=== PATIENT | male | born 1960 | race Caucasian/White ===

== ENCOUNTER 2020-07-24 13:46 | Emergency (ER) | payer SELFPAY ==
[2020-07-24 13:47] VITALS: BP 160/97; PULSE 91; RESP 16; TEMP 36.3; O2SAT 94; BMI 35.9
--- NOTE | 2020-07-24 14:14 | RAD_ITS ---
STUDY: X-RAY - LEFT KNEE REASON FOR EXAM: Left knee pain, left knee surgery in 2008. TECHNIQUE: 4 view(s) of the knee. COMPARISON: None. FINDINGS: Normal visualized distal femur. There is an intramedullary merritt in the tibia. There is chronic healed fracture deformity of the proximal fibula. Normal proximal tibiofibular articulation. There is a surface osteophyte of the medial femoral condyle without joint space narrowing of the medial femorotibial compartment. There are small marginal osteophytes without joint space narrowing of the lateral femorotibial compartment. There are marginal osteophytes with severe joint space narrowing of the lateral aspect of the patellofemoral articulation. There are intra-articular bodies. There are ossicles at the lateral aspect of the patella. RAD/Knee 4 or More Views IMPRESSION: Degenerative changes of the left knee, most advanced of the patellofemoral compartment. Intra-articular bodies. Chronic healed fracture deformity of the proximal fibula and intramedullary merritt in the tibia. Electronically Signed: Simone Crain MD at 15:25 EST Tel , Service support ,
--- NOTE | 2020-07-24 15:47 | ED.DEP ---
ED Disposition - Plan for ED Patient: Instructions: ED Knee Sprain Prescriptions: Hydrocodone Bitart/Apap 5-325 [[place] 5MG-325MG] 1 tab PO Q6H PRN PRN 3 Days #10 tab PRN Reason: Pain Prescription Printed Referrals: Chas Schaffer DO [STAFF PHYSICIAN] -
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
[2020-07-24 16:32] VITALS: RESP 14
== END 2020-07-24 16:35 | disposition home or self-care (01) ==
LOC: ED 15:39
PROVIDERS: Emergency Provider Emergency Medicine
DX: S80.02XA Contusion of left knee, initial encounter (principal); W19.XXXA Unspecified fall, initial encounter
CPT/HCPCS: 73564; 99283

== ENCOUNTER 2021-07-31 17:58 | Inpatient (IN) | payer MEDICARE, SELFPAY ==
[2021-07-31] VITALS (11 sets, daily range): BP systolic 92–124; BP diastolic 52–91; PULSE 91–120; RESP 18–28; TEMP 36.1–36.6; O2SAT 93–98; BMI 35.5; BMI 34.5
--- NOTE | 2021-07-31 18:29 | EKG12_ITS ---
Test Reason : FALL Blood Pressure : / mmHG Vent. Rate : 096 BPM Atrial Rate : 096 BPM P-R Int : 164 ms QRS Dur : 096 ms QT Int : 368 ms P-R-T Axes : 060 048 055 degrees QTc Int : 464 ms Normal sinus rhythm Normal ECG Confirmed by SHARI WALKER, ELIGIO ([id number]), medical editor CLAYTON BOWLING ([id number]) on 08/01/2021 11:10:25 AM Referred By: PL Confirmed By:KATELYNN MCCARTHY MD
--- NOTE | 2021-07-31 18:29 | RAD_ITS ---
STUDY: X-RAY - LEFT KNEE REASON FOR EXAM: Male, 60 years old. Fall TECHNIQUE: 3 view(s) of the knee. COMPARISON: 07/24/2020 FINDINGS: Normal visualized distal femur. Internal fixation hardware noted at the distal tibia. Intact distal fibula. There is moderate degenerative arthrosis of the medial femorotibial compartment with moderate joint space narrowing. There is moderate degenerative arthrosis of the lateral femorotibial compartment with moderate joint space narrowing. There is severe degenerative arthrosis of the patellofemoral articulation. The soft tissue structures are unremarkable. RAD/Knee 4 or More Views IMPRESSION: Evidence of prior ORIF distal tibia. Diffuse arthrosis. No acute fracture or dislocation. Electronically Signed: Leland Lyle MD at 19:38 EST ,
--- NOTE | 2021-07-31 18:29 | RAD_ITS ---
STUDY: X-RAY - RIGHT HAND REASON FOR EXAM: Male, 60 years old. Injury TECHNIQUE: 3 view(s) of the hand. COMPARISON: None. FINDINGS: No acute fracture, dislocation or osseous destruction. No significant joint space narrowing. No significant productive changes. No significant soft tissue swelling. IMPRESSION: Intact hand. Electronically Signed: Leland Lyle MD at 19:28 EST , RAD/Hand Min 3 Views
[2021-07-31 18:31] LABS: Bedside Glucose > 500 mg/dL (70-110)
--- NOTE | 2021-07-31 18:34 | EX.ED.DYSGE1 ---
HPI History of Present Illness Chief Complaint: Fall Detail of Chief Complaint: Falls and generalized weakness for the last several days Informant: patient Narrative Narrative: Patient presents to the emergency department via EMS after having a fall yesterday and another fall today where he could not get up. Patient lives with his girlfriend and they have been helping him get up when he has fallen in the past. Patient states that he hit his right hand on something yesterday and injured it as well as his left knee and right knee. Patient also checked his blood sugar and it was over 500. Patient states that has not been taking diabetic medicine for over 5 years as he is disabled. He denies chest pain or abdominal pain. He denies shortness of breath other than with some exertion. He denies any Covid exposures. Prior similar symptoms: No [facility] Medical History (Updated 07/31/21 @ 19:[address] Kell Blank, DO) Diabetes mellitus HTN (hypertension) Left leg injury Home Medications NK 07/31/21 [History Last Taken Unknown] Allergy/AdvReac Type Severity Reaction Status Date / Time No Known Allergies Allergy Verified 07/31/21 17:58 Surgical History no surgical history Social History Smoking Status: Former smoker ROS ROS ED ROS Narrative Hyperglycemia Constitutional Constitutional ED: Reports systems reviewed and no addt'l complaints, except as documented; Denies body ache(s), change in weight or chills Eyes Eyes: Denies acute decrease in peripheral vision, change in vision, double vision or loss of vision ENT ENT ED: Reports none; Denies ear pain, lip swelling, loss taste/smell, neck pain, otalgia or sore throat Cardiovascular Cardiovascular: Reports none; Denies abdominal pain, chest pain with activity, leg edema, lightheadedness, palpitations, rapid heart rate or syncope Respiratory/Chest Respiratory/Chest: Reports none, dyspnea and dyspnea on exertion; Denies change in mental status, dry cough, hemoptysis, shortness of breath at rest or shortness of breath with exertion Gastrointestinal Gastrointestinal: Reports none; Denies abdominal pain, change in stool character, diarrhea, hematemesis, hematochezia, melena, rectal bleeding or vomiting Genitourinary Genitourinary ED: Reports none; Denies abdominal discomfort, anuria, dysuria, genital pain or polyuria Musculoskeletal Musculoskeletal: Reports none and other Details: Bilateral knee pain and right hand pain ; Denies arthralgias, back pain, difficulty walking, extremity pain, muscle weakness or myalgias Integumentary Reports none; Denies abscess or rash Neurologic Neurologic: Reports none; Denies abnormal gait, confusion, focal weakness, frequent falls, headache(s), loss of vision, numbness, paresthesias, radicular pain, vertigo or weakness Psychiatric Psychiatric: Reports systems reviewed and no addt'l complaints, except as documented and none; Denies behavioral changes, confusion, difficulty concentrating, hallucinations, suicidal ideation, tactile hallucinations or visual hallucinations Endocrine Endocrinology: Reports other Details: Dark urine ; Denies none, cold intolerance, excessive sweating, fatigue or heat intolerance Hematologic/Lymphatic Hematologic/Lymphatic: Reports none; Denies anemia, easy bleeding or easy bruising Allergic/Immunologic Allergic/Immunologic ED: Denies as per HPI, none, lip swelling, mouth swelling, throat swelling, tongue swelling or hives EXAM Physical Exam Const Vital Signs: 07/31/21 17:59 07/31/21 18:06 07/31/21 18:41 Temperature 97.2 F L Temperature Source Oral Pulse Rate 101 H 99 94 Respiratory Rate 18 26 H 20 H Respiratory Effort Respiratory Depth Respiratory Pattern Blood Pressure 92/52 L 94/61 Blood Pressure Mean 65 72 Pulse Ox 95 94 94 Oxygen Delivery Method Room Air Room Air Room Air 07/31/21 18:43 07/31/21 19:34 Temperature Temperature Source Pulse Rate 91 Respiratory Rate 24 H Respiratory Effort Normal Respiratory Depth Normal Respiratory Pattern Normal Blood Pressure 97/60 Blood Pressure Mean 72 Pulse Ox 94 Oxygen Delivery Method Room Air Room Air Positive well nourished and well developed General Appearance ED: well developed and NAD HEENT Reports TM's clear and moist mucous membranes normocephalic and atraumatic; Negative for trauma or tenderness Tympanic Membrane ED: Yes TM's clear Eyes PERRL and EOMs intact bilaterally General Eye ED: Negative for pale conjunctiva or scleral icterus Neck no lymphadenopathy, supple and no JVD General: Negative for tenderness Chest Wall inspection of chest normal and palpation of chest normal Chest: Negative for tenderness Resp normal respiratory effort and clear to auscultation bilaterally Effort and Inspection: Negative for respiratory distress or pain with movement Auscultation: Negative for rhonchi, wheezes or diminished lung sounds Cardio regular rate, regular rhythm, S1 normal heart sound, S2 normal heart sound and no murmurs Peripheral Pulses: pulses 2+ throughout GI normal to inspection, nondistended, normoactive bowel sounds, soft to palpation, non-tender, non-distended and no masses Back/Spine no CVA tenderness and no thoracic nor lumbar tenderness Extremity normal to inspection Extremity Narrative: Patient has ecchymosis and bruising to the right posterior shoulder as well as to the right knee and left knee. There is deformity at the right knee which he states has been there for several months. General Extremety ED: Negative for edema General Extremity: Negative for edema Neuro oriented x3, CN's II-XII intact bilaterally, no sensory deficits noted and gait normal Sensorium / Orientation: awake, alert, oriented to person, oriented to place and oriented to time Motor Exam: strength 5/5 throughout and strength abnormal Psych mental status grossly normal Skin no rashes or lesions noted and no wounds MDM MDM MDM Narrative Medical decision making narrative: IV line established on arrival. Patient was written for a liter normal same fluid bolus. Patient was ordered an insulin drip. Patient noted to have acute kidney injury as well as DKA. Patient has elevated CPK I suspect likely related to his falls. Patient also has elevated troponin which I suspect is likely related to his acute kidney failure. Patient also with a lactic acidosis of 7.8. Case discussed with hospitalist will evaluate patient for admission Lab Data Attestation: I reviewed the patient's lab results. Labs: Laboratory Results - last 24 hr 07/31/21 07/31/21 07/31/21 18:05 18:05 18:05 WBC 11.7 H RBC 4.83 Hgb 14.9 Hct 42.1 MCV 87.2 MCH 30.8 MCHC 35.4 RDW Std Deviation 41.4 RDW Coeff of Cristiano 13.0 Plt Count 4 L* MPV TNP Immature Gran % (Auto) 1.100 H Neut % (Auto) 86.5 H Lymph % (Auto) 7.5 L Martin % (Auto) 4.5 Eos % (Auto) 0.1 Baso % (Auto) 0.3 Absolute Neuts (auto) 10.1 H Absolute Lymphs (auto) 0.87 Nucleated RBC % 0 Sodium 121 L Potassium 4.3 Chloride 87 L Carbon Dioxide 11.0 L Anion Gap 23 H BUN 39 H Creatinine 2.81 H Estim Creat Clear Calc 30.80 Est GFR (MDRD) Af Amer 30 L Est GFR (MDRD) Non-Af 24 L BUN/Creatinine Ratio 13.9 Glucose 584 H* Lactic Acid 7.8 H* Calcium 8.8 Total Bilirubin 1.50 H AST 158 H ALT 76 H Alkaline Phosphatase 112 Total Creatine Kinase 4950 H Troponin I High Sens 278 H* Total Protein 6.4 Albumin 2.5 L Globulin 3.9 Albumin/Globulin Ratio 0.6 L POC Glucose 07/31/21 18:10 WBC RBC Hgb Hct MCV MCH MCHC RDW Std Deviation RDW Coeff of Cristiano Plt Count MPV Immature Gran % (Auto) Neut % (Auto) Lymph % (Auto) Martin % (Auto) Eos % (Auto) Baso % (Auto) Absolute Neuts (auto) Absolute Lymphs (auto) Nucleated RBC % Sodium Potassium Chloride Carbon Dioxide Anion Gap BUN Creatinine Estim Creat Clear Calc Est GFR (MDRD) Af Amer Est GFR (MDRD) Non-Af BUN/Creatinine Ratio Glucose Lactic Acid Calcium Total Bilirubin AST ALT Alkaline Phosphatase Total Creatine Kinase Troponin I High Sens Total Protein Albumin Globulin Albumin/Globulin Ratio POC Glucose > 500 H* Radiography Chest X-Ray - ED: 1 View Diagnostic Testing: Clinical Impression(s) from Imaging Studies Hand X-Ray 07/31/21 18:29 Chest X-Ray 07/31/21 19:00 IMPRESSION: Normal x-ray examination of the chest. Electronically Signed: Leland Lyle MD at 19:30 EST Reading Location ID and State: [address] [place] [address] Tel , Service support , 1 view chest x-ray obtained interpreted by myself as no acute disease process. Radiology in agreement. Patient had x-rays of the right hand which were interpreted by myself as no acute fractures and radiology in agreement. Patient had 4 view x-rays of bilateral knees which interpreted by myself as no acute fractures. Patient had prior ORIF of the left tibia. Evaluation of the right knee showed chronic changes but no acute fractures. Radiology in agreement. EKG Initial EKG: Attestation: I personally reviewed and interpreted this EKG as follows: Comments: Sinus rhythm with a ventricular rate of 96 bpm with no acute ST segment changes Prior EKG tracings: not available for review Critical Care Time Critical care time (excluding procedures): Including time spent:, Discussing w/Patient &/or Family/Rat Farmer, Discussing w/Consultants, Arranging Admission or Transfer, Performing Direct Patient Care at Bedside and - (35 minutes) Discharge Plan Triage Chief Complaint: Fall ED Provider: Kell Blank Dx/Rx/DC Orders Clinical Impression: DKA (diabetic ketoacidosis), Thrombocytopenia, Acute kidney injury, Debility, Falls, Acute hyponatremia Prescriptions: No Action NK RF: 0 Primary Care Provider: Care Physician,No Primary Referrals: Care Physician,No Primary [Primary Care Provider] - Disposition Disposition: Acute Care Hospital [facility]
[2021-07-31] MEDS: 0.9% Normal Saline 1,000 ML 1000 ML IV (18:35)
--- NOTE | 2021-07-31 18:35 | RAD_ITS ---
STUDY: X-RAY - RIGHT KNEE REASON FOR EXAM: Male, 60 years old. PAIN TECHNIQUE: 3 view(s) of the knee. COMPARISON: None. FINDINGS: Severe arthrosis of the patellofemoral articulation with lateral displacement of the patella and extensive heterotopic bone formation. Moderate arthrosis of the femorotibial components. No acute displaced fracture is identified. The soft tissue structures are unremarkable. RAD/Knee 4 or More Views IMPRESSION: Severe arthrosis with subluxation of the patella. No acute fracture or dislocation identified. Electronically Signed: Leland Lyle MD at 19:42 EST ,
[2021-07-31 18:45] LABS: Absolute Lymphocyte Count 0.87 X10^3/uL (0.83-4.51); Absolute Neutrophil Count 10.1 X10^3/uL (2.0-7.7); Basophil# 0.04 X10^3/uL; Basophil% 0.3 % (0-1); Eosinophil# 0.01 X10^3/uL; Eosinophils% 0.1 % (0-5); Hematocrit 42.1 % (40-54); Hemoglobin 14.9 g/dL (13.0-16.5); Lymphocyte # 0.87 X10^3/ul (0.83-4.51); Lymphocyte % 7.5 % (19-41); Mean Corp Hgb Conc 35.4 g/dL (32-36); Mean Corpuscular Hgb 30.8 pg (27.0-32.0); Mean Corpuscular Volume 87.2 fL (80-94); Monocyte# 0.53 X10^3/uL; Monocyte% 4.5 % (0-10); NRBC Flagged by Analyzer 0 % (0-5); Neutrophil # 10.07 X10^3/uL (2.7-7.7); Neutrophil % 86.5 % (47-70); POSITIVE COUNT YES; POSITIVE MORPHOLOGY YES; RBC Distribution Width SD 41.4 fl (35.1-43.9); Red Blood Count 4.83 M/mm3 (4.6-6.2); White Blood Count 11.7 K/mm3 (4.4-11.0)
[2021-07-31] MEDS: 0.9% Normal Saline 1,000 ML 150 ML IV (18:45)
[2021-07-31 18:53] LABS: Differential Indicated SCAN CRITERIA MET; Platelet Count 4 K/mm3 (150-450)
--- NOTE | 2021-07-31 19:00 | RAD_ITS ---
STUDY: X-RAY CHEST REASON FOR EXAM: Male, 60 years old. Weakness TECHNIQUE: Single frontal view of the chest. COMPARISON: None. FINDINGS: The lungs are clear and expanded. There is no demonstrated pleural abnormality. Normal size heart. Normal mediastinum and tessie. Normal visualized pulmonary arteries. Normal visualized aortic arch and descending thoracic aorta. Normal visualized thoracic spine. Normal visualized ribs, clavicles, and shoulders. There is no demonstrated abnormality of the visualized soft tissue structures of the upper abdomen. RAD/Chest 1 View (Portable) IMPRESSION: Normal x-ray examination of the chest. Electronically Signed: Leland Lyle MD at 19:30 EST ,
[2021-07-31 19:07] LABS: Lactic Acid 7.8 mmol/L (0.4-1.9)
[2021-07-31 19:14] LABS: ALB/GLOB Ratio 0.6 RATIO (0.9-2.4); AST(SGOT) 158 U/L (15-37); Alanine Aminotransfer ALT/SGPT 76 U/L (16-61); Albumin, Serum 2.5 g/dL (3.2-5.0); Alkaline Phosphatase 112 U/L (45-117); Anion Gap 23 (5-15); BUN 39 mg/dL (7-18); BUN/Creat Ratio 13.9 RATIO (10-20); CPK Total, Creatine Kinase 4950 U/L (39-308); Calcium,Total 8.8 mg/dL (8.5-10.1); Chloride 87 mmol/L (98-107); Creatinine, Serum 2.81 mg/dL (0.70-1.30); EST Glomerular Filtration Rate 24 mL/min (>60); Est Glom Filt Rate - Afr Amer 30 mL/min (>60); Globulin 3.9 g/dL (2.2-4.2); Glucose 584 mg/dL (74-106); Potassium 4.3 mmol/L (3.5-5.1); Protein, Total 6.4 g/dL (6.4-8.2); Sodium Level 121 mmol/L (136-145); Troponin-I HS 278 pg/mL (3.0-78.0)
[2021-07-31 19:46] LABS: Differential Comment SCANNED
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
--- NOTE | 2021-07-31 19:50 | ED.RN ---
Report called to Nevin in ICU at 1950
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
--- NOTE | 2021-07-31 20:30 | RAD_ITS ---
EXAM: XR LEFT ELBOW COMPLETE, 3 OR MORE VIEWS CLINICAL INDICATION: pain, swelling TECHNIQUE: Frontal, lateral and oblique views of the left elbow. This report was created using [email or web address] report generation technology. COMPARISON: None. FINDINGS: BONES/JOINTS: Radial head prosthesis visualized. There is lucency surrounding the prosthesis which can suggest loosening. Small fracture fragment noted on the lateral view. The donor site is likely the radius. There is overlying soft tissue swelling of the arm. 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 There is no displacement of the anterior or posterior fat pads. SOFT TISSUES: See above. RAD/Elbow min 3 Views IMPRESSION: 1. Radial head prosthesis visualized. There is lucency surrounding the prosthesis which can suggest loosening. Small fracture fragment noted on the lateral view. The donor site is likely the radius. There is overlying soft tissue swelling of the arm. 2. 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 Electronically Signed: Chalo Pablo MD at 21:07 EST ,
[2021-07-31 20:36] LABS: Bedside Glucose 409 mg/dL (70-110)
[2021-07-31 21:10] LABS: Bedside Glucose 330 mg/dL (70-110)
[2021-07-31] MEDS: KCL 40mEq in 0.9% NS 40 MEQ/1,000 ML IV.SOLN 250 MEQ IV (21:29)
[2021-07-31 21:42] LABS: Anion Gap 20 (5-15); BUN 41 mg/dL (7-18); BUN/Creat Ratio 14.5 RATIO (10-20); Calcium,Total 8.4 mg/dL (8.5-10.1); Chloride 93 mmol/L (98-107); Creatinine, Serum 2.83 mg/dL (0.70-1.30); EST Glomerular Filtration Rate 24 mL/min (>60); Est Glom Filt Rate - Afr Amer 29 mL/min (>60); Estimated Creatinine Clearance 30.59 ml/min; Glucose 328 mg/dL (74-106); Sodium Level 127 mmol/L (136-145)
[2021-07-31 21:49] LABS: Hemoglobin A1c 12.5 % (3.8-5.6)
[2021-07-31 22:06] LABS: Troponin-I HS 301 pg/mL (3.0-78.0)
[2021-07-31 22:11] LABS: Bedside Glucose 277 mg/dL (70-110)
[2021-07-31 22:39] LABS: Reflex Lactate? Y
[2021-07-31] MEDS: Potassium Chloride 40 MEQ in Dext 5%-0.45% NS 1,000 ML 150 MEQ IV (23:39)
[2021-08-01] VITALS (45 sets, daily range): BP systolic 72–149; BP diastolic 33–105; PULSE 0–163; RESP 12–119; TEMP 36.1–37.1; O2SAT 28–100
[2021-08-01 00:36] LABS: Bedside Glucose 261 mg/dL (70-110)
[2021-08-01 00:36] LABS: Bedside Glucose 191 mg/dL (70-110)
[2021-08-01 01:14] LABS: Anion Gap 19 (5-15); BUN 45 mg/dL (7-18); BUN/Creat Ratio 15.7 RATIO (10-20); Calcium,Total 8.6 mg/dL (8.5-10.1); Chloride 97 mmol/L (98-107); Creatinine, Serum 2.86 mg/dL (0.70-1.30); EST Glomerular Filtration Rate 24 mL/min (>60); Est Glom Filt Rate - Afr Amer 29 mL/min (>60); Estimated Creatinine Clearance 30.27 ml/min; Glucose 247 mg/dL (74-106); Sodium Level 128 mmol/L (136-145)
[2021-08-01 01:26] LABS: Bedside Glucose 247 mg/dL (70-110)
[2021-08-01 01:32] LABS: Lactic Acid 4.2 mmol/L (0.4-1.9); Troponin-I HS 381 pg/mL (3.0-78.0)
[2021-08-01 02:31] LABS: Bedside Glucose 241 mg/dL (70-110)
[2021-08-01 03:22] LABS: Absolute Lymphocyte Count 0.63 X10^3/uL (0.83-4.51); Absolute Neutrophil Count 7.7 X10^3/uL (2.0-7.7); Basophil# 0.02 X10^3/uL; Basophil% 0.2 % (0-1); Eosinophil# 0.01 X10^3/uL; Eosinophils% 0.1 % (0-5); Hematocrit 38.5 % (40-54); Hemoglobin 14.5 g/dL (13.0-16.5); Lymphocyte # 0.63 X10^3/ul (0.83-4.51); Mean Corpuscular Hgb 31.3 pg (27.0-32.0); Monocyte# 0.58 X10^3/uL; Monocyte% 6.4 % (0-10); NRBC Flagged by Analyzer 0 % (0-5); Neutrophil # 7.73 X10^3/uL (2.7-7.7); Neutrophil % 85.6 % (47-70); POSITIVE COUNT YES; POSITIVE MORPHOLOGY YES; RBC Distribution Width SD 39.8 fl (35.1-43.9); Red Blood Count 4.64 M/mm3 (4.6-6.2)
[2021-08-01 03:24] LABS: Differential Indicated SCAN CRITERIA MET; Platelet Count 3 K/mm3 (150-450)
[2021-08-01 03:55] LABS: Bedside Glucose 262 mg/dL (70-110)
--- NOTE | 2021-08-01 04:31 | NURSING ---
0430: first pack platelets up after manual verification d/t non-scanning unit number on product; conferred w/laborer laboratory Myles prior to manual verification and administration outside of [facility]. VS: 98f, 115, 26, 97%, 112/49 transfusion started at 120ml/hr per policy thru [facility] 20g.
--- NOTE | 2021-08-01 04:47 | NURSING ---
0445: Platelet transfusion rate increased to 150ml/hr, pt denies any complaints. Vitals: 98f,116,21,97%,93/77
[2021-08-01 05:05] LABS: AST(SGOT) 197 U/L (15-37); Alanine Aminotransfer ALT/SGPT 79 U/L (16-61); Albumin, Serum 2.3 g/dL (3.2-5.0); Alkaline Phosphatase 125 U/L (45-117); Anion Gap 16 (5-15); BUN 50 mg/dL (7-18); BUN/Creat Ratio 16.2 RATIO (10-20); Bilirubin, Direct 0.45 mg/dL (0.00-0.30); Calcium,Total 8.6 mg/dL (8.5-10.1); Chloride 95 mmol/L (98-107); Creatinine, Serum 3.08 mg/dL (0.70-1.30); EST Glomerular Filtration Rate 22 mL/min (>60); Est Glom Filt Rate - Afr Amer 27 mL/min (>60); Globulin 3.9 g/dL (2.2-4.2); Glucose 205 mg/dL (74-106); Potassium 3.9 mmol/L (3.5-5.1); Protein, Total 6.2 g/dL (6.4-8.2); Sodium Level 128 mmol/L (136-145)
[2021-08-01 05:33] LABS: CPK Total, Creatine Kinase 5101 U/L (39-308)
[2021-08-01 05:58] LABS: Mean Corp Hgb Conc 37.2 g/dL (32-36)
[2021-08-01 06:01] LABS: Differential Comment SCANNED; Platelet Estimate MKD DEC (ADEQ)
[2021-08-01 06:20] LABS: Bedside Glucose 212 mg/dL (70-110)
[2021-08-01 06:20] LABS: Bedside Glucose 251 mg/dL (70-110)
[2021-08-01] MEDS: Potassium Chloride 40 MEQ in Dext 5%-0.45% NS 1,000 ML 150 MEQ IV ×2 (06:27→20:09)
[2021-08-01 07:00] LABS: Bedside Glucose 250 mg/dL (70-110)
[2021-08-01 07:17] LABS: Hemoglobin A1c 12.5 % (3.8-5.6)
[2021-08-01 08:26] LABS: Bedside Glucose 254 mg/dL (70-110)
[2021-08-01 09:24] LABS: Anion Gap 15 (5-15); BUN 53 mg/dL (7-18); BUN/Creat Ratio 16.6 RATIO (10-20); Calcium,Total 8.4 mg/dL (8.5-10.1); Chloride 98 mmol/L (98-107); Creatinine, Serum 3.19 mg/dL (0.70-1.30); EST Glomerular Filtration Rate 21 mL/min (>60); Est Glom Filt Rate - Afr Amer 26 mL/min (>60); Estimated Creatinine Clearance 27.13 ml/min; Glucose 217 mg/dL (74-106); Potassium 3.8 mmol/L (3.5-5.1); Sodium Level 129 mmol/L (136-145)
[2021-08-01 11:40] LABS: Bedside Glucose 211 mg/dL (70-110)
[2021-08-01 11:49] LABS: Absolute Lymphocyte Count 0.41 X10^3/uL (0.83-4.51); Absolute Neutrophil Count 5.4 X10^3/uL (2.0-7.7); Basophil# 0.02 X10^3/uL; Basophil% 0.3 % (0-1); Eosinophil# 0.01 X10^3/uL; Eosinophils% 0.2 % (0-5); Hematocrit 37.4 % (40-54); Hemoglobin 13.7 g/dL (13.0-16.5); Lymphocyte # 0.41 X10^3/ul (0.83-4.51); Lymphocyte % 6.4 % (19-41); Mean Corp Hgb Conc 36.6 g/dL (32-36); Mean Corpuscular Hgb 30.9 pg (27.0-32.0); Mean Corpuscular Volume 84.2 fL (80-94); Monocyte# 0.52 X10^3/uL; Monocyte% 8.1 % (0-10); NRBC Flagged by Analyzer 0 % (0-5); Neutrophil # 5.35 X10^3/uL (2.7-7.7); Neutrophil % 83.1 % (47-70); POSITIVE COUNT YES; POSITIVE DIFFERENTIAL YES; POSITIVE MORPHOLOGY YES; RBC Distribution Width SD 40.6 fl (35.1-43.9); Red Blood Count 4.44 M/mm3 (4.6-6.2); White Blood Count 6.4 K/mm3 (4.4-11.0)
[2021-08-01 11:51] LABS: Differential Indicated SCAN CRITERIA MET; Platelet Count 4 K/mm3 (150-450)
[2021-08-01 11:58] LABS: Anion Gap 17 (5-15); BUN 55 mg/dL (7-18); BUN/Creat Ratio 16.1 RATIO (10-20); Calcium,Total 8.3 mg/dL (8.5-10.1); Chloride 98 mmol/L (98-107); Creatinine, Serum 3.42 mg/dL (0.70-1.30); EST Glomerular Filtration Rate 19 mL/min (>60); Est Glom Filt Rate - Afr Amer 24 mL/min (>60); Estimated Creatinine Clearance 25.31 ml/min; Glucose 239 mg/dL (74-106); Potassium 3.8 mmol/L (3.5-5.1); Sodium Level 130 mmol/L (136-145)
[2021-08-01 12:24] LABS: Platelet Estimate MKD DEC (ADEQ)
[2021-08-01] MEDS: 0.9% Normal Saline 1,000 ML 500 ML IV (12:25)
[2021-08-01 12:36] LABS: Bedside Glucose 219 mg/dL (70-110)
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
[2021-08-01 14:01] LABS: Pathologist Review Reviewed
[2021-08-01 14:03] LABS: Pathologist Review Reviewed
[2021-08-01 14:11] LABS: Bedside Glucose 209 mg/dL (70-110)
[2021-08-01] MEDS: Lidocaine Jelly 2% 20 ML Syringe (URO-JET) 1 APPLIC TOPICAL (14:30)
[2021-08-01 14:57] LABS: Mucous, Urine 0 SEEN /hpf (<or=2+); Squamous Epithelial Cells - UA 0 SEEN /hpf (0-5)
[2021-08-01 15:03] LABS: Color, Urine Amber (Yellow); Glucose, Dipstick 1000 mg/dl (Normal); Ketone-Dipstick 15 mg/dl (Negative); Leukocyte Esterase-Dipstick 25 /ul (Negative); Nitrite-Dipstick Negative (Negative); Occult Blood-Urine 250 /ul (Negative); Protein-Dipstick 100 mg/dl (Negative); Urine Clarity Sl. Cloudy (Clear); Urine Urobilinogen 1 mg/dl (Normal)
[2021-08-01 15:26] LABS: Urine Bilirubin Dipstick 1 mg/dL (Negative)
[2021-08-01 15:27] LABS: Bacteria RARE /hpf (None Seen); Red Blood Cells-Urine 25-50 SEEN /hpf (0-5)
[2021-08-01 15:28] LABS: White Blood Cells 0-5 SEEN /hpf (0-5)
--- NOTE | 2021-08-01 15:32 | EKG12_ITS ---
Test Reason : Blood Pressure : / mmHG Vent. Rate : 118 BPM Atrial Rate : 118 BPM P-R Int : 142 ms QRS Dur : 102 ms QT Int : 336 ms P-R-T Axes : 047 033 027 degrees QTc Int : 470 ms Sinus tachycardia Otherwise normal ECG When compared with ECG of 31-JUL-2021 18:07, No significant change was found Confirmed by HENRY WALKER, KATE ([id number]), fan mail editor CLAYTON BOWLING ([id number]) on 08/06/2021 11:21:07 AM Referred By: Confirmed By:KATE FIGUEROA MD
[2021-08-01 15:56] LABS: Allen Test Positive; Base Excess -15 mmol/L (-2 to +2); Bicarbonate 10.4 mmol/L (22-26); Blood Gas Specimen Type ART; O2 Delivery Device Cannula; PO2 68 mmHG (75-100); SITE R Radial; SO2 93 % (95-99); Total Carbon Dioxide 11 mmol/L; pCO2 18.9 mmHg (35-45); pH 7.35 (7.35-7.45)
--- NOTE | 2021-08-01 16:15 | NURSING ---
1530 pt w/increase respers, diaphoretic, polanco, 12 lead ekg completed. STATIONARY STEAM ENGINEER called
--- NOTE | 2021-08-01 16:29 | EX.PCM.CONCC ---
Assessment & Plan Assessment/Plan (1) Chronic ITP (idiopathic thrombocytopenic purpura): (2) DKA (diabetic ketoacidosis): QUALIFIERS: Diabetes mellitus complication detail: without coma Diabetes mellitus type: other specified (including KELLY) Qualified Code(s): E13.10 - Other specified diabetes mellitus with ketoacidosis without coma (3) Acute kidney injury: (4) Debility: PLAN: RECOMMENDATIONS: 1. IVIG and steroids per hematology 2. Continue to monitor DKA per protocol 3. Monitor peripheral pulses or compartment syndrome 4. Obtain coagulation studies 5. Potential Ortho consult for evaluation of left great toe cellulitis and right knee hemarthrosis 6. Monitor for respiratory muscle fatigue. BiPAP if indicated 7. Cycle troponins IMPRESSIONS: 1. Acute DKA with uncontrolled diabetes mellitus Patient is currently on the protocol. Patient has not received significant volume resuscitation at this time, but does appear to be improving. Continue with insulin until gap is closed. Patient does have significant respiratory compensation for metabolic acidosis. We will need to watch closely for respiratory muscle fatigue. BiPAP can be added if necessary. 2. Thrombocytopenia Unclear etiology. ITP versus TTP. Patient does have renal dysfunction, encephalopathy, elevated troponin and oliguria. Recommend obtaining coagulation studies, fibrinogen and other work-up per hematology. Unclear if additional platelet transfusions will be helpful. Patient does have hypocalcemia also. Patient appears to have possible bleeding complications such as hemarthrosis of the right knee. X-rays were unremarkable. May need a tap. Could consider orthopedic evaluation. 3. Severe sepsis secondary to group B strep with potential subacute endocarditis Patient may have an element of osteomyelitis of the left great toe. Patient has all blood cultures positive for group B strep. Given patient's poor care of himself, cannot exclude a subacute endocarditis. Would recommend an echocardiogram if not completed previously. Patient is on appropriate antibiotics at this time. Patient does have elevated CPK, creatinine and encephalopathy indicating endorgan damage. 4. Rhabdomyolysis/elevated troponin/acute kidney injury CPK is slightly elevated. Patient does have an element of acute kidney injury with a high of 3.4. Patient appears to be responding to fluid resuscitation. Urine output is marginal at this time. CPK is relatively unchanged. No indication for renal replacement therapy at this time. We will supplement potassium. Patient did have pseudohyponatremia on presentation. 5. Lack of primary care/multiple falls/pseudohyponatremia Complicates care, management, recovery and prognosis. Patient will need to work with PT/OT. Anticipate case management evaluating for placement on discharge. Poor long-term prognosis. We will need to address CODE STATUS once underlying etiologies are elucidated. Addendum 5:25 PM: Called emergently to the patient's room at approximately 5 PM secondary to acute onset of SVT. Patient was noted to be tachypneic and diaphoretic as he has been since I originally saw him. Patient was given 6 mg and then 12 mg of adenosine with EKGs. Telemetry appears to be A. fib with an irregular rhythm, but EKG is showing sinus tach. Patient will be monitored clinically for 10 minutes to see if it will resolve spontaneously. If this is unsuccessful, will attempt trial with beta-naren. TIME: 60 minutes critical care time spent addressing patient's acute DKA, thrombocytopenia, severe sepsis, rhabdomyolysis, review of all data and collaboration with care team. HPI Consult Data Date of Consult: 08/01/21 HPI Narrative HPI Narrative: LIANNA MARTINEZ is a 60 M, with past medical history listed below, who presents to [facility] on 07/31/2021 following a fall and inability to get up. Patient reportedly lives with his girlfriend and has been falling multiple times over the last 2 to 3 weeks. She had checked his blood sugar and it was over 500. Patient is a known diabetic, but has not been taking his medications for over 5 years. Patient is currently not interactive, so that history is per the medical record. Patient reportedly had denied any shortness of breath, fever, chills or chest pain. In the ER, patient was afebrile, but hypotensive at 92/52. Patient saturating well on room air, but was tachypneic at 26 breaths/min. Laboratory work-up showed a white blood cell count of 11.7, hemoglobin of 14.9 and a platelet count of 4. Creatinine was elevated at 2.81, glucose 584 with an anion gap of 23. Total CK was elevated at almost 5000 and troponin was 278. Total bilirubin was up at 1.5. Chest x-ray was unremarkable. The patient was admitted to the floor with a diagnosis of DKA on an insulin drip. Patient was noted to have a lactic acidosis of 7.8. Intensive care was not initially consulted. Patient reportedly has received multiple transfusions of platelets At 3:30 PM, rapid response was called to patient's room. Patient was noted to be hypotensive, ashen and significant respiratory distress. Patient reportedly has been confused throughout the day. Patient's blood sugars were recently checked and within normal limits. Patient reportedly her been seen by oncology and given a diagnosis of ITP. Patient was given IVIG and a fluid bolus. An ABG was obtained showing compensated metabolic acidosis. Patient's eyes are open, but he is not interactive at this time. Patient does appropriately track. No seizure activity has been reported by nursing, but they have felt that he is gone downhill through the day. [facility] Medical History Diabetes mellitus HTN (hypertension) Left leg injury Home Medications NK 07/31/21 [History Last Taken Unknown] Allergy/AdvReac Type Severity Reaction Status Date / Time No Known Allergies Allergy Verified 07/31/21 17:58 Family History Other Diabetes Hypertension Surgical History H/O knee surgery Surgical History no surgical history Social History Smoking Status: Former smoker ROS Review of Systems ROS Unobtainable: due to encephalopathy Physical Exam Const alert; Negative for oriented x3 Constitutional Narrative: lying in bed General Appearance: disheveled and appears older than stated age Nutritional Appearance: obese HEENT normocephalic Head and Scalp: atraumatic Eyes PERRL, EOMs intact bilaterally and conjunctivae normal; Negative for no scleral icterus Eyes Narrative: Glasses in place Neck supple Lymph Lymphatic: no lymphadenopathy noted Chest inspection of chest normal Chest: symmetrical chest wall rise; Negative for crepitus Resp Resp Narrative: No paradoxical respiratory movements noted Effort and Inspection: tachypneic Auscultation: clear to auscultation bilaterally; Negative for rales, rhonchi or wheezes Percussion: percussion normal Cardio regular rhythm, S1 normal heart sound, S2 normal heart sound, no murmurs, no rub and no gallops Rate: tachycardic GI normal to inspection, nondistended, normoactive bowel sounds Extremity Right Lower Extremity: knee joint inspection (Significant swelling with ecchymosis) Left Lower Extremity: foot and digits Positive for inspection (Cooler to the touch. Chronically draining wounds dorsal aspect of the large toe) Skin Skin Narrative: Multiple areas of bruising in various stages of healing. Some abrasions noted on the chest and left shoulder. Neuro CN's II-XII intact bilaterally and moves all extremities Psych Appearance: unkempt Attitude: uncooperative Mood & Affect: blunted affect Lab / Micro Data Result Diagrams: 08/01/21 11:35 08/01/21 16:00 Labs: Laboratory Results - last 24 hr 07/31/21 18:05: WBC 11.7 H, RBC 4.83, Hgb 14.9, Hct 42.1, MCV 87.2, MCH 30.8, MCHC 35.4, RDW Std Deviation 41.4, RDW Coeff of Cristiano 13.0, Plt Count 4 L*, MPV TNP, Immature Gran % (Auto) 1.100 H, Neut % (Auto) 86.5 H, Lymph % (Auto) 7.5 L, [place] % (Auto) 4.5, Eos % (Auto) 0.1, Baso % (Auto) 0.3, Absolute Neuts (auto) 10.1 H, Absolute Lymphs (auto) 0.87, Nucleated RBC % 0, Differential Comment SCANNED, Diff Path Review Reviewed 07/31/21 18:05: Sodium 121 L, Potassium 4.3, Chloride 87 L, Carbon Dioxide 11.0 L, Anion Gap 23 H, BUN 39 H, Creatinine 2.81 H, Estim Creat Clear Calc 30.80, Est GFR (MDRD) Af Amer 30 L, Est GFR (MDRD) Non-Af 24 L, BUN/Creatinine Ratio 13.9, Glucose 584 H*, Calcium 8.8, Total Bilirubin 1.50 H, AST 158 H, ALT 76 H, Alkaline Phosphatase 112, Total Creatine Kinase 4950 H, Troponin I High Sens 278 H*, Total Protein 6.4, Albumin 2.5 L, Globulin 3.9, Albumin/Globulin Ratio 0.6 L 07/31/21 18:05: Lactic Acid 7.8 H* 07/31/21 18:10: POC Glucose > 500 H* 07/31/21 20:30: POC Glucose 409 H 07/31/21 20:36: Blood Type O POSITIVE 07/31/21 21:06: POC Glucose 330 H 07/31/21 21:10: Hemoglobin A1c 12.5 H 07/31/21 21:10: Sodium 127 L, Potassium 4.0, Chloride 93 L, Carbon Dioxide 14.0 L, Anion Gap 20 H, BUN 41 H, Creatinine 2.83 H, Estim Creat Clear Calc 30.59, Est GFR (MDRD) Af Amer 29 L, Est GFR (MDRD) Non-Af 24 L, BUN/Creatinine Ratio 14.5, Glucose 328 H, Calcium 8.4 L 07/31/21 21:10: Troponin I High Sens 301 H* 07/31/21 22:04: POC Glucose 277 H 07/31/21 23:09: POC Glucose 191 H 08/01/21 00:20: Sodium 128 L, Potassium 4.0, Chloride 97 L, Carbon Dioxide 12.0 L, Anion Gap 19 H, BUN 45 H, Creatinine 2.86 H, Estim Creat Clear Calc 30.27, Est GFR (MDRD) Af Amer 29 L, Est GFR (MDRD) Non-Af 24 L, BUN/Creatinine Ratio 15.7, Glucose 247 H, Calcium 8.6 08/01/21 00:20: Troponin I High Sens 381 H* 08/01/21 00:20: Lactic Acid 4.2 H* 08/01/21 00:23: POC Glucose 261 H 08/01/21 01:19: POC Glucose 247 H 08/01/21 02:24: POC Glucose 241 H 08/01/21 03:05: POC Glucose 262 H 08/01/21 03:12: WBC 9.0, RBC 4.64, Hgb 14.5, Hct 38.5 L, MCV 83.0, MCH 31.3, MCHC 37.2 H D, RDW Std Deviation 39.8, RDW Coeff of Cristiano 13.0, Plt Count 3 L*, MPV TNP, Immature Gran % (Auto) 0.700, Neut % (Auto) 85.6 H, Lymph % (Auto) 7.0 L, [place]oup % (Auto) 6.4, Eos % (Auto) 0.1, Baso % (Auto) 0.2, Absolute Neuts (auto) 7.7, Absolute Lymphs (auto) 0.63 L, Nucleated RBC % 0, Differential Comment SCANNED, Diff Path Review Reviewed, Platelet Estimate MKD 08/01/21 03:12: Hemoglobin A1c 12.5 H 08/01/21 04:08: Sodium 128 L, Potassium 3.9, Chloride 95 L, Carbon Dioxide 17.0 L, Anion Gap 16 H, BUN 50 H, Creatinine 3.08 H, Estim Creat Clear Calc 28.10, Est GFR (MDRD) Af Amer 27 L, Est GFR (MDRD) Non-Af 22 L, BUN/Creatinine Ratio 16.2, Glucose 205 H, Calcium 8.6, Total Bilirubin 1.40 H, Direct Bilirubin 0.45 H, AST 197 H, ALT 79 H, Alkaline Phosphatase 125 H, Total Protein 6.2 L, Albumin 2.3 L, Globulin 3.9 08/01/21 04:08: Total Creatine Kinase 5101 H 08/01/21 05:02: POC Glucose 212 H 08/01/21 06:15: POC Glucose 251 H 08/01/21 06:57: POC Glucose 250 H 08/01/21 08:19: POC Glucose 254 H 08/01/21 09:00: Sodium 129 L, Potassium 3.8, Chloride 98, Carbon Dioxide 16.0 L, Anion Gap 15, BUN 53 H, Creatinine 3.19 H, Estim Creat Clear Calc 27.13, Est GFR (MDRD) Af Amer 26 L, Est GFR (MDRD) Non-Af 21 L, BUN/Creatinine Ratio 16.6, Glucose 217 H, Calcium 8.4 L 08/01/21 10:07: POC Glucose 211 H 08/01/21 11:35: Sodium 130 L, Potassium 3.8, Chloride 98, Carbon Dioxide 15.0 L, Anion Gap 17 H, BUN 55 H, Creatinine 3.42 H, Estim Creat Clear Calc 25.31, Est GFR (MDRD) Af Amer 24 L, Est GFR (MDRD) Non-Af 19 L, BUN/Creatinine Ratio 16.1, Glucose 239 H, Calcium 8.3 L 08/01/21 11:35: WBC 6.4, RBC 4.44 L, Hgb 13.7, Hct 37.4 L, MCV 84.2, MCH 30.9, MCHC 36.6 H, RDW Std Deviation 40.6, RDW Coeff of Cristiano 13.0, Plt Count 4 L*, Immature Gran % (Auto) 1.900 H, Neut % (Auto) 83.1 H, Lymph % (Auto) 6.4 L, Loup % (Auto) 8.1, Eos % (Auto) 0.2, Baso % (Auto) 0.3, Absolute Neuts (auto) 5.4, Absolute Lymphs (auto) 0.41 L, Nucleated RBC % 0, Differential Comment COMMENT, Diff Path Review October foll, Platelet Estimate MKD 08/01/21 12:29: POC Glucose 219 H 08/01/21 13:51: POC Glucose 209 H 08/01/21 14:45: Urine Color Annie, Urine Clarity Sl. Cloudy, Urine pH 5.0, Ur Specific [place] 1.020, Urine Protein 100 H, Urine Glucose (UA) 1000 H, Urine Ketones 15 H, Urine Occult Blood 250 H, Urine Nitrite Negative, Urine Bilirubin 1 H, Urine Urobilinogen 1 H, Ur Leukocyte Esterase 25 H, Urine RBC 25-50 SEEN, Urine WBC 0-5 SEEN, Ur Squamous Epith Cells 0 SEEN, Urine Bacteria RARE, Urine Mucus 0 SEEN Micro: Microbiology 07/31/21 18:05 Blood Culture (Wb) - Anticubital Left Blood Culture - Preliminary 07/31/21 18:25 Blood Culture (Wb) - Right Forearm Bacteria Detection (PCR) - Preliminary Streptococcus agalactiae (B) 07/31/21 18:25 Blood Culture (Wb) - Right Forearm Blood Culture - Preliminary 07/31/21 18:45 Nasal Secretion SARS-CoV-2 Antigen (Rapid) - Final ABG Data ABG results: ABG 08/01/21 15:50 Specimen Type ART Sample Site R Radial pH 7.35 Bicarbonate Actual 10.4 L Total CO2 11 Base Excess -15 L O2 Saturation 93 L ABG pCO2 18.9 L* ABG pO2 68 L Tamir Test Positive O2 Delivery Device Cannula Liter Flow 2.0 Crit Call To/Read Back Yes Blood Gas Notified Whom MERRY Radiology Impression Hand X-Ray 07/31/21 18:29 Knee X-Ray 07/31/21 18:29 IMPRESSION: Evidence of prior ORIF distal tibia. Diffuse arthrosis. No acute fracture or dislocation. 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 No acute fracture or dislocation identified. Electronically Signed: Leland Lyle MD at 19:42 EST , Chest X-Ray 07/31/21 19:00 IMPRESSION: Normal x-ray examination of the chest. Electronically Signed: Leland Lyle MD at 19:30 EST , Elbow X-Ray 07/31/21 20:30 IMPRESSION: 1. Radial head prosthesis visualized. There is lucency surrounding the prosthesis which can suggest loosening. Small fracture fragment noted on the lateral view. The donor site is likely the radius. There is overlying soft tissue swelling of the arm. 2. 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 Electronically Signed: Chalo Pablo MD at 21:07 EST , Charges/Coding Procedures Hospitalists Procedures: [id number] [facility] Hr
[2021-08-01 16:46] LABS: Anion Gap 17 (5-15); BUN 47 mg/dL (7-18); Calcium,Total 6.2 mg/dL (8.5-10.1); Chloride 111 mmol/L (98-107); Creatinine, Serum 2.77 mg/dL (0.70-1.30); EST Glomerular Filtration Rate 25 mL/min (>60); Est Glom Filt Rate - Afr Amer 30 mL/min (>60); Estimated Creatinine Clearance 31.25 ml/min; Glucose 207 mg/dL (74-106); Potassium 2.9 mmol/L (3.5-5.1); Sodium Level 138 mmol/L (136-145)
[2021-08-01 16:47] LABS: Troponin-I HS 153 pg/mL (3.0-78.0)
--- NOTE | 2021-08-01 16:53 | NURSING ---
education re chronic illness deferred till acute illness resolving
[2021-08-01] MEDS: 0.9% Normal Saline 1,000 ML 250 ML IV (16:55)
[2021-08-01 17:01] LABS: Bedside Glucose 239 mg/dL (70-110)
--- NOTE | 2021-08-01 17:07 | PN.HOSP_ITS ---
Subjective Subjective Slow to respond and periodically confused. He is unsure as to why he is here, he says that he is in pain but he cannot specify exactly where. He did have an MONEY ROOM TELLER called on him this afternoon secondary to episodes of hypotension and unresponsiveness. On arrival he was still breathing we were able to lay him flat and start him on a fluid bolus and he recovered very quickly but he is still confused. Objective Data Objective Data Vital Signs: Vital Signs Temp Pulse Resp BP Pulse Ox 97.0 F L 106 H 32 H 148/98 H 96 08/01/21 16:15 08/01/21 16:15 08/01/21 16:15 08/01/21 16:15 08/01/21 16:15 Oxygen Flow Rate (L/min) 2 Oxygen Delivery Method Room Air Weight: 260 lb 2.327 oz Body Mass Index (BMI) 34.5 Intake & Output: Intake and Output for Last 24 Hours 07/31/21 08/01/21 08/02/21 03:59 03:59 03:59 Intake Total 3350.39 / 3350.39 Output Total 200 / 200 Balance 3150.39 / 3150.39 Lab / Micro Data Result Diagrams: 08/01/21 11:35 08/01/21 16:00 Labs: Laboratory Results - last 24 hr 07/31/21 18:05: WBC 11.7 H, RBC 4.83, Hgb 14.9, Hct 42.1, MCV 87.2, MCH 30.8, MCHC 35.4, RDW Std Deviation 41.4, RDW Coeff of Cristiano 13.0, Plt Count 4 L*, MPV TNP, Immature Gran % (Auto) 1.100 H, Neut % (Auto) 86.5 H, Lymph % (Auto) 7.5 L, [place] % (Auto) 4.5, Eos % (Auto) 0.1, Baso % (Auto) 0.3, Absolute Neuts (auto) 10.1 H, Absolute Lymphs (auto) 0.87, Nucleated RBC % 0, Differential Comment SCANNED, Diff Path Review Reviewed 07/31/21 18:05: Sodium 121 L, Potassium 4.3, Chloride 87 L, Carbon Dioxide 11.0 L, Anion Gap 23 H, BUN 39 H, Creatinine 2.81 H, Estim Creat Clear Calc 30.80, Est GFR (MDRD) Af Amer 30 L, Est GFR (MDRD) Non-Af 24 L, BUN/Creatinine Ratio 13.9, Glucose 584 H*, Calcium 8.8, Total Bilirubin 1.50 H, AST 158 H, ALT 76 H, Alkaline Phosphatase 112, Total Creatine Kinase 4950 H, Troponin I High Sens 278 H*, Total Protein 6.4, Albumin 2.5 L, Globulin 3.9, Albumin/Globulin Ratio 0.6 L 07/31/21 18:05: Lactic Acid 7.8 H* 07/31/21 18:10: POC Glucose > 500 H* 07/31/21 20:30: POC Glucose 409 H 07/31/21 20:36: Blood Type O POSITIVE 07/31/21 21:06: POC Glucose 330 H 07/31/21 21:10: Hemoglobin A1c 12.5 H 07/31/21 21:10: Sodium 127 L, Potassium 4.0, Chloride 93 L, Carbon Dioxide 14.0 L, Anion Gap 20 H, BUN 41 H, Creatinine 2.83 H, Estim Creat Clear Calc 30.59, Est GFR (MDRD) Af Amer 29 L, Est GFR (MDRD) Non-Af 24 L, BUN/Creatinine Ratio 14.5, Glucose 328 H, Calcium 8.4 L 07/31/21 21:10: Troponin I High Sens 301 H* 07/31/21 22:04: POC Glucose 277 H 07/31/21 23:09: POC Glucose 191 H 08/01/21 00:20: Sodium 128 L, Potassium 4.0, Chloride 97 L, Carbon Dioxide 12.0 L, Anion Gap 19 H, BUN 45 H, Creatinine 2.86 H, Estim Creat Clear Calc 30.27, Est GFR (MDRD) Af Amer 29 L, Est GFR (MDRD) Non-Af 24 L, BUN/Creatinine Ratio 15.7, Glucose 247 H, Calcium 8.6 08/01/21 00:20: Troponin I High Sens 381 H* 08/01/21 00:20: Lactic Acid 4.2 H* 08/01/21 00:23: POC Glucose 261 H 08/01/21 01:19: POC Glucose 247 H 08/01/21 02:24: POC Glucose 241 H 08/01/21 03:05: POC Glucose 262 H 08/01/21 03:12: WBC 9.0, RBC 4.64, Hgb 14.5, Hct 38.5 L, MCV 83.0, MCH 31.3, MCHC 37.2 H D, RDW Std Deviation 39.8, RDW Coeff of Cristiano 13.0, Plt Count 3 L*, MPV TNP, Immature Gran % (Auto) 0.700, Neut % (Auto) 85.6 H, Lymph % (Auto) 7.0 L, [place] % (Auto) 6.4, Eos % (Auto) 0.1, Baso % (Auto) 0.2, Absolute Neuts (auto) 7.7, Absolute Lymphs (auto) 0.63 L, Nucleated RBC % 0, Differential Comment SCANNED, Diff Path Review Reviewed, Platelet Estimate MKD 08/01/21 03:12: Hemoglobin A1c 12.5 H 08/01/21 04:08: Sodium 128 L, Potassium 3.9, Chloride 95 L, Carbon Dioxide 17.0 L, Anion Gap 16 H, BUN 50 H, Creatinine 3.08 H, Estim Creat Clear Calc 28.10, Est GFR (MDRD) Af Amer 27 L, Est GFR (MDRD) Non-Af 22 L, BUN/Creatinine Ratio 16.2, Glucose 205 H, Calcium 8.6, Total Bilirubin 1.40 H, Direct Bilirubin 0.45 H, AST 197 H, ALT 79 H, Alkaline Phosphatase 125 H, Total Protein 6.2 L, Albumin 2.3 L, Globulin 3.9 08/01/21 04:08: Total Creatine Kinase 5101 H 08/01/21 05:02: POC Glucose 212 H 08/01/21 06:15: POC Glucose 251 H 08/01/21 06:57: POC Glucose 250 H 08/01/21 08:19: POC Glucose 254 H 08/01/21 09:00: Sodium 129 L, Potassium 3.8, Chloride 98, Carbon Dioxide 16.0 L, Anion Gap 15, BUN 53 H, Creatinine 3.19 H, Estim Creat Clear Calc 27.13, Est GFR (MDRD) Af Amer 26 L, Est GFR (MDRD) Non-Af 21 L, BUN/Creatinine Ratio 16.6, Glucose 217 H, Calcium 8.4 L 08/01/21 10:07: POC Glucose 211 H 08/01/21 11:35: Sodium 130 L, Potassium 3.8, Chloride 98, Carbon Dioxide 15.0 L, Anion Gap 17 H, BUN 55 H, Creatinine 3.42 H, Estim Creat Clear Calc 25.31, Est GFR (MDRD) Af Amer 24 L, Est GFR (MDRD) Non-Af 19 L, BUN/Creatinine Ratio 16.1, Glucose 239 H, Calcium 8.3 L 08/01/21 11:35: WBC 6.4, RBC 4.44 L, Hgb 13.7, Hct 37.4 L, MCV 84.2, MCH 30.9, MCHC 36.6 H, RDW Std Deviation 40.6, RDW Coeff of Cristiano 13.0, Plt Count 4 L*, Immature Gran % (Auto) 1.900 H, Neut % (Auto) 83.1 H, Lymph % (Auto) 6.4 L, [place] % (Auto) 8.1, Eos % (Auto) 0.2, Baso % (Auto) 0.3, Absolute Neuts (auto) 5.4, Absolute Lymphs (auto) 0.41 L, Nucleated RBC % 0, Differential Comment COMMENT, Diff Path Review Vera irizarry, Platelet Estimate MKD 08/01/21 12:29: POC Glucose 219 H 08/01/21 13:51: POC Glucose 209 H 08/01/21 14:45: Urine Color Annie, Urine Clarity Sl. Cloudy, Urine pH 5.0, Ur Specific [place] 1.020, Urine Protein 100 H, Urine Glucose (UA) 1000 H, Urine Ketones 15 H, Urine Occult Blood 250 H, Urine Nitrite Negative, Urine Bilirubin 1 H, Urine Urobilinogen 1 H, Ur Leukocyte Esterase 25 H, Urine RBC 25-50 SEEN, Urine WBC 0-5 SEEN, Ur Squamous Epith Cells 0 SEEN, Urine Bacteria RARE, Urine Mucus 0 SEEN 08/01/21 15:21: POC Glucose 239 H 08/01/21 16:00: Sodium 138, Potassium 2.9 L, Chloride 111 H, Carbon Dioxide 10.0 L, Anion Gap 17 H, BUN 47 H, Creatinine 2.77 H, Estim Creat Clear Calc 31.25, Est GFR (MDRD) Af Amer 30 L, Est GFR (MDRD) Non-Af 25 L, BUN/Creatinine Ratio 17.0, Glucose 207 H, Calcium 6.2 L* 08/01/21 16:00: Troponin I High Sens 153 H* Micro: Microbiology 07/31/21 18:05 Blood Culture (Wb) - Anticubital Left Blood Culture - Preliminary 07/31/21 18:25 Blood Culture (Wb) - Right Forearm Bacteria Detection (PCR) - Preliminary Streptococcus agalactiae (B) 07/31/21 18:25 Blood Culture (Wb) - Right Forearm Blood Culture - Preliminary 07/31/21 18:45 Nasal Secretion SARS-CoV-2 Antigen (Rapid) - Final ABG Data ABG results: ABG 08/01/21 15:50 Specimen Type ART Sample Site R Radial pH 7.35 Bicarbonate Actual 10.4 L Total CO2 11 Base Excess -15 L O2 Saturation 93 L ABG pCO2 18.9 L* ABG pO2 68 L Tamir Test Positive O2 Delivery Device Cannula Liter Flow 2.0 Crit Call To/Read Back Yes Blood Gas Notified Whom MERRY Radiography Diagnostic Testing: Radiology Impression Hand X-Ray 07/31/21 18:29 Knee X-Ray 07/31/21 18:29 IMPRESSION: Evidence of prior ORIF distal tibia. Diffuse arthrosis. No acute fracture or dislocation. Electronically Signed: Leland Lyle MD at 19:38 EST Reading Location ID and State: [id number] / [place] [employer] , Service support , Knee X-Ray 07/31/21 18:35 IMPRESSION: Severe arthrosis with subluxation of the patella. No acute fracture or dislocation identified. Electronically Signed: Leland Lyle MD at 19:42 EST Reading Location ID and State: [id number] / [place] [employer] , Service support , Chest X-Ray 07/31/21 19:00 IMPRESSION: Normal x-ray examination of the chest. Electronically Signed: Leland Lyle MD at 19:30 EST , Elbow X-Ray 07/31/21 20:30 IMPRESSION: 1. Radial head prosthesis visualized. There is lucency surrounding the prosthesis which can suggest loosening. Small fracture fragment noted on the lateral view. The donor site is likely the radius. There is overlying soft tissue swelling of the arm. 2. 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 Electronically Signed: Chalo Pablo MD at 21:07 EST Reading Location ID and State: [facility] / [place] , Service support , Physical Exam Const alert General Appearance: cooperative Orientation / Consciousness: confused HEENT normocephalic Mouth: dry mucous membranes Eyes PERRL, EOMs intact bilaterally and conjunctivae normal Neck supple and no JVD Resp normal respiratory effort, no retractions and no use of accessory muscles Auscultation: diminished lung sounds; Negative for crackles, rales, rhonchi or wheezes Cardio regular rhythm, S1 normal heart sound, S2 normal heart sound and no murmurs Rate: tachycardic GI soft to palpation, non-tender and non-distended; Negative for hepatosplenomegaly Extremity no clubbing, cyanosis or edema Extremity Narrative: Right knee is swollen with likely hemarthrosis Skin Skin Narrative: Multiple areas of ecchymosis and what looks like petechia. Cold and clammy Neuro no focal motor deficits and no sensory deficits noted Psych Appearance: unkempt Mood & Affect: flat affect Assessment & Plan Assessment/Plan (1) DKA (diabetic ketoacidosis): QUALIFIERS: Diabetes mellitus type: other specified (including KELLY) Diabetes mellitus complication detail: without coma Qualified Code(s): E13.10 - Other specified diabetes mellitus with ketoacidosis without coma (2) Thrombocytopenia: (3) Ulcer of left great toe due to diabetes mellitus: (4) Chronic ITP (idiopathic thrombocytopenic purpura): (5) Acute kidney injury: (6) Severe sepsis: PLAN: 1. Acute DKA with uncontrolled diabetes/rhabdomyolysis after mechanical fall/severe sepsis from a group B strep bacteremia unknown source/NICOL ?He has completed his DKA protocol and his insulin drip has been discontinued, he has been placed on long-acting basal insulin as well as mealtime insulin and sliding scale insulin ?Accu-Cheks AC at bedtime and will adjust as necessary ?Leo was placed and it is extremely concentrated consistent with a rhabdomyo lysis, no significant evidence of a UTI however will obtain a culture. ?We will start him on Unasyn and repeat blood cultures, possible other sources could be his left great toe could be infected as there was some bruising and is hard to tell whether or not this was bruising consistent with thrombocytopenia versus ischemia from his diabetes. Echo is pending ?Continue with IV fluids with boluses as necessary ?Elevated troponin secondary to rhabdo ?Wound consult for his left great toe ulceration 2. Possible chronic ITP/left knee hemarthrosis ?He did express to the edger machine helper that he is always had low platelets since 2003 this is all possible an acute reaction to his sepsis ?He was transfused platelets without any response and his platelet count ?Per the advice of hematology, will start him on high-dose steroids for 3 days as well as IVIG for 2 or 3 days ?We will obtain coagulation studies with PT, INR, D-dimer, fibrinogen, PTT ?Appreciate hematology's assistance ?The multiple areas of ecchymosis and the hemarthrosis likely secondary to his thrombocytopenia will monitor ?May need to talk to orthopedic surgery for drainage of his knee if we cannot find an etiology for his bacteremia also need to discuss with orthopedic surgery about his left elbow but she does have a radial head prosthesis in place. We will continue with empiric antibiotics for now DVT: SCDs secondary to thrombocytopenia Charges/Coding Visit Charges Inpatient E&M: 09203 Subs Hosp L3
[2021-08-01] MEDS: Adenosine 6 MG/2 ML Syringe IV (17:17)
[2021-08-01] MEDS: Calcium Gluconate 1 GM/10 ML Vial IVP ×2 (17:45→20:32)
[2021-08-01] MEDS: Potassium Chloride 10mEq/100mL 10 MEQ/100 ML IV.SOLN. 100 MEQ IV BOLUS ×3 (17:50→21:29)
[2021-08-01] MEDS: Adenosine 6 MG/2 ML Syringe 12 MG IV (17:51)
[2021-08-01] MEDS: Metoprolol Tartrate 5 MG/5 ML Vial 2.5 MG IV (18:00)
[2021-08-01 19:15] LABS: Bedside Glucose 290 mg/dL (70-110)
--- NOTE | 2021-08-01 19:42 | RAD_ITS ---
EXAM: XR ABDOMEN, 1 VIEW CLINICAL INDICATION: Confirm OG placement -- Prior to admin of any med,fluid,flush,enteral feed TECHNIQUE: Frontal supine view of the abdomen/pelvis. This report was created using [employer] report generation technology. COMPARISON: None. FINDINGS: LOWER THORAX: Heart is enlarged. GASTROINTESTINAL TRACT: Unremarkable. Non-obstructive. No bowel or stomach distention. ORGANS: Unremarkable as visualized. No organomegaly. No abnormal calcifications. BONES/JOINTS: No acute pathology. SOFT TISSUES: No acute pathology. TUBES, LINES AND DEVICES: There is a feeding tube/ nasogastric tube noted. The tip is in the region of the stomach. RAD/Abdomen Single View (Portable) IMPRESSION: There is a feeding tube/ nasogastric tube noted. The tip is in the region of the stomach. Electronically Signed: Chalo Pablo MD at 20:16 EST ,
--- NOTE | 2021-08-01 19:51 | RAD_ITS ---
STUDY: X-RAY CHEST REASON FOR EXAM: Male, 60 years old. CHEST PAIN To confirm ET placement -- Call wet read to TECHNIQUE: XR Chest 1 View COMPARISON: Yesterday FINDINGS: Prominent right tessie. ET tube in place. There is mild cardiac enlargement. Normal visualized pulmonary arteries. There is atherosclerotic calcification of the aortic arch with tortuosity. There are diffuse degenerative changes of the visualized thoracic spine. There is degenerative osteoarthritis of the bilateral shoulders. There is no demonstrated abnormality of the visualized soft tissue structures of the upper abdomen. RAD/Chest 1 View (Portable) IMPRESSION: There is an endotracheal tube in place. The tip is 30 mm above the aren. This is in good position. Electronically Signed: Chalo Pablo MD at 20:17 EST ,
--- NOTE | 2021-08-01 20:34 | RAD_ITS ---
STUDY: X-RAY CHEST REASON FOR EXAM: Male, 60 years old. CHEST PAIN central line placement TECHNIQUE: XR Chest 1 View COMPARISON: Study done earlier today. FINDINGS: There is no demonstrated pleural abnormality. There is no pneumothorax. There is an NGT and ET tube in place. There is a right IJ line. Normal size heart. Normal mediastinum and tessie. Normal visualized pulmonary arteries. Normal visualized aortic arch and descending thoracic aorta. Normal visualized thoracic spine. Normal visualized ribs, clavicles, and shoulders. There is no demonstrated abnormality of the visualized soft tissue structures of the upper abdomen. RAD/CXR for Line Placement IMPRESSION: There is a feeding tube/ nasogastric tube noted. The tip is in the region of the stomach. Electronically Signed: Chalo Pablo MD at 21:17 EST ,
[2021-08-01] MEDS: Atropine Sulfate 1 MG/10 ML Syringe IV (20:48)
[2021-08-01] MEDS: Epinephrine IV 1 mg/10 ml syringe IV (20:49)
--- NOTE | 2021-08-01 21:08 | NURSING ---
1930: SpO2 65% on monitor, BP 72/51, this RN and dayshift RN Edith to bedside. Pt unresponsive, [place] in color. ST on monitor. Laid pt's HOB down, pt bradycardic then asystole on monitor. 1931: Code Blue called overhead, compressions started. Pt attached to defib and code team at bedside. See Code Documentation for further details.
--- NOTE | 2021-08-01 21:15 | NURSING ---
2045: VT on monitor, this nurse to bedside, pulse confirmed by doppler. Rhythm on monitor changes to SB, no pulse, PEA. Compressions initiated, Code Blue. See Code documentation for further details.
--- NOTE | 2021-08-01 21:17 | NURSING ---
2052: Call to pt's significant other, Rachel Zuniga. Updated Rachel on pt's current condition including code blue x2 and on ventilator. Rachel states she will try to come in.
--- NOTE | 2021-08-01 22:08 | PCM.CODE.SUM ---
Code Blue Report Code Blue Summary Code Blue Summary: Patient has had multiple acute bruising the same day. At this CODE BLUE was started at 21:43. Nursing team report that patient's went into V. fib and was shocked. ACLS was continued. He then went to asystole and ACLS continued. Calcium chloride and bicarbonate IV push was given as part of ACLS protocol. Eventually patient achieved ROSC. We will broaden antibiotics. Stop Unasyn. Start vancomycin. Start Zosyn. Start on bicarbonate drip.
--- NOTE | 2021-08-01 22:18 | NURSING ---
This RN spoke with significant other (SO), Rachel, regarding pt's family members. SO states pt has a mother and 2 sisters in [place] or [place]. Mother is in a mcc and in her 90's and her brain is not good. SO does not know names of family members or a way to contact them. SO spoke with pt's best friend, who also didn't know sister's names. Friend said he would try to contact the place of employment that one of the sisters used to work at, in the morning. Dr cooley notified of above.
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
--- NOTE | 2021-08-01 23:10 | NURSING ---
Addendum entered by Shan Leblanc 08/01/21 23:17: 2237: Rhythm change from junctional to asystole, with confirmed pulselessness. Original Note: 2235: Dr Nails at bedside speaking to pt's significant other, Rachel. Pt in junctional rhythm on monitor, rate slows to 30s with rhythm change. This RN remains at bedside, no pulse per doppler/palpation. Dr Nails confirms no audible heart tones per auscultation. TOD 2236. Emotional support offered to sig other Rachel, questions answered. Pt's personal belongings returned to Rachel, including eyeglasses, cellphone, clothing.
[2021-08-02 01:41] LABS: Bedside Glucose 362 mg/dL (70-110)
[2021-08-02 12:29] LABS: Pathologist Review Reviewed
[2021-08-02 23:06] LABS: Base Excess < -30 mmol/L (-2 to +2); Bicarbonate 6.2 mmol/L (22-26); Blood Gas Specimen Type ART; FI02 100; Mode AC; O2 Delivery Device Adult Vent; PEEP 5; PO2 128 mmHG (75-100); RR 14; SITE L Radial; SO2 91 % (95-99); Total Carbon Dioxide 8 mmol/L; Vt 450; pCO2 53.7 mmHg (35-45); pH 6.67 (7.35-7.45)
== END 2021-08-01 22:37 | DRG 871 ==
LOC: ED 19:44 → ICU 19:52
PROVIDERS: Internal Medicine Critical Care Medicine; Admitting Provider Hospitalist; Emergency Provider Emergency Medicine; Visit Provider Family Medicine
DX: A40.1 Sepsis due to streptococcus, group B (principal); E11.10 Type 2 diabetes mellitus with ketoacidosis without coma; G93.40 Encephalopathy, unspecified; D69.3 Immune thrombocytopenic purpura; N17.9 Acute kidney failure, unspecified; I47.1 Supraventricular tachycardia; M86.8X7 Other osteomyelitis, ankle and foot; E87.1 Hypo-osmolality and hyponatremia; M62.82 Rhabdomyolysis; I46.9 Cardiac arrest, cause unspecified; R65.20 Severe sepsis without septic shock; D69.6 Thrombocytopenia, unspecified; E83.51 Hypocalcemia; E11.621 Type 2 diabetes mellitus with foot ulcer; L97.529 Non-pressure chronic ulcer of other part of left foot with unspecified severity; E11.69 Type 2 diabetes mellitus with other specified complication; I10 Essential (primary) hypertension; S60.222A Contusion of left hand, initial encounter; S60.221A Contusion of right hand, initial encounter; W19.XXXA Unspecified fall, initial encounter; Y93.9 Activity, unspecified; Y99.9 Unspecified external cause status; Y92.9 Unspecified place or not applicable; Z87.891 Personal history of nicotine dependence
CPT/HCPCS: 31500; 36600; 71045; 73080; 73130; 73564; 74018; 80048; 80053; 80076; 81001; 82550; 82803; 82962; 83036; 83605; 84484; 85025; 86900; 86901; 86965; 87040; 87077; 87086; 87088; 87149; 87186; 87426; 92950; 93005; 94002; 97162; 97166; 99285; J7030; J7050; P9035; A4216; C1751; J0153; J0295; J0610; J2930; J3475; J7799